=== PATIENT | female | born 1980 | race African-American/Black ===

== ENCOUNTER 2016-12-31 23:20 | Emergency (ER) | payer BC ==
--- NOTE | ~2016-12-31 | CR72 ---
[facility] A Service of [facility] RADIOLOGY TEXT RESULTS PATIENT: CAIN BEGUM LOCATION: [facility] : [birth year] UNIT #: [id number] AGE: [address]: Niels Rodriguez MD SEX: F ORDER DR: [id number] [facility] [address] [place], [place] [address] [id number] E MR#: [id number] Acc #: [id number] NAME: CAIN BEGUM : 1980 SEX: F STUDY DATE/TIME: 12/31/2016 22:07 UNIT: [facility] ROOM: STUDY DESCRIPTION: CR Chest Single View Portable Attending Physician: Niels Rodriguez M.D. Ordering Physician: Niels Rodriguez M.D. Primary Care Physician: No Primary Care Physician MEDICAL IMAGING REPORT This report is preliminary unless electronic signature is present EXAM AP portable chest. DATE 12/31/2016 at 2207 HISTORY 36-year-old female with complaints of chest pain, tightness and burning sensation for 2 days. COMPARISON AP portable chest, 05/14/2016. FINDINGS A single AP portable view of the chest shows both lungs to be clear. The heart is normal in size. The mediastinal contour is normal. No significant bone abnormalities are seen. IMPRESSION Normal portable chest. Dictated by... Margoth Rea M.D. THIS IS AN ELECTRONICALLY VERIFIED REPORT Margoth Rea M.D. at 01/05/2017 8:[address] [facility]/melyssa TD: 01/01/2017 09:40 JOB #: [id number] [facility] A Service [facility] RADIOLOGY TEXT RESULTS PATIENT: CAIN BEGUM LOCATION: [facility] : 82 UNIT #: [id number] AGE: [address]: Niels Rodriguez MD SEX: F ORDER DR: MEDICAL IMAGING REPORT Page 1 of 1 COPY
--- NOTE | ~2016-12-31 | EKG ---
PATIENT: CAIN BEGUM UNIT #: [id number] Ventricular Rate: 100 BPM Atrial Rate: 100 BPM P-R Interval: 132 ms QRS Duration: 70 ms Q-T Interval: 356 ms QTC Calculation(Bezet): 459 ms P Bruno: 58 degrees Calculated R Bruno: 9 degrees Calculated T Bruno: -13 degrees Diagnosis Line: Normal sinus rhythm Diagnosis Line: T wave abnormality, consider anterior ischemia Diagnosis Line: Abnormal ECG Diagnosis Line: When compared with ECG of 14-MAY-2016 18:50, Diagnosis Line: No significant change was found Diagnosis Line: Confirmed by VINCENT ZUÑIGA MD ([id number]) on 01/04/2017 Diagnosis Line: 7:16:43 AM INTERPRETING MD: YOGESH CALLAHAN
--- NOTE | ~2016-12-31 | US85 ---
[facility] A Service of [facility] & [facility] RADIOLOGY TEXT RESULTS PATIENT: CAIN BEGUM LOCATION: [facility] : 82 UNIT #: [id number] AGE: [address]: Niels Rodriguez MD SEX: F ORDER DR: [id number] [facility] [address] [place], [place] [address] [id number] E MR#: [id number] Acc #: [id number] NAME: CAIN BEGUM : 1980 SEX: F STUDY DATE/TIME: 12/31/2016 21:23 UNIT: [facility] ROOM: STUDY DESCRIPTION: [employer] Attending Physician: Niels Rodriguez M.D. Ordering Physician: Niels Rodriguez M.D. Primary Care Physician: Primary Care Physician No MEDICAL IMAGING REPORT This report is preliminary unless electronic signature is present EXAM Right lower extremity venous Doppler study HISTORY History of pulmonary embolism in November 2015. Chest tightness and pain beginning today. History of right lower extremity pain for 2 days. FINDINGS Color-flow, garcia-scale compression and Doppler spectral waveform analysis of the right lower extremity was performed. Examination shows no intraluminal filling defects. Veins are compressible throughout. There is normal phasicity of flow. CONCLUSION Negative right lower extremity venous Doppler. Dictated by... Jose Maloney M.D. THIS IS AN ELECTRONICALLY VERIFIED REPORT Jose Maloney M.D. at 01/04/2017 5:10 PM Lety TD: 01/01/2017 09:25 JOB #: [id number] MEDICAL IMAGING REPORT Page 1 of 1 COPY
[2016-12-31 22:03] LABS: BASOPHIL# 0.1 X10e3 (0-0.3); BASOPHIL% 1.6 % (0-2.5); EOSINOPHIL# 0.2 X10e3 (0-0.7); EOSINOPHIL% 2.6 % (0.0-7.0); HEMATOCRIT 38.8 % (35.0-45.0); HEMOGLOBIN 12.4 gm/dL (12.0-16.0); LYMPHOCYTE# 3.2 X10e3 (1.0-3.5); LYMPHOCYTE% 49.9 % (17.0-45.0); MEAN CELL VOLUME 85.9 FL (83-96); MEAN CORPUSCULAR HEMOGLOBIN 27.5 PG (28-34); MEAN PLATELET VOLUME 6.9 FL (6.5-11.5); MONOCYTE# 0.3 X10e3 (0-1.0); MONOCYTE% 4.1 % (3.0-12.0); NEUTROPHIL# 2.7 X10e3 (1.5-7.1); NEUTROPHIL% 41.8 % (40-75); PLATELET COUNT 453 X10e3 (140-420); RED BLOOD COUNT 4.52 X10e (3.90-5.30); RED CELL DISTRIBUTION WIDTH 13.5 % (11.0-15.5); WHITE BLOOD COUNT 6.5 X10e3 (4.0-10.5)
[2016-12-31 22:04] LABS: DIFF IND NO
[2016-12-31 22:17] LABS: POC - CKMB <1.0 ng/mL (0.0-7.9); POC - TROPONIN <0.05 ng/mL (<=0.05)
[2016-12-31 22:26] LABS: INR 0.9; PARTIAL THROMBOPLASTIN TIME 26.4 SECONDS (23.5-31.3)
[2016-12-31 22:29] LABS: ALBUMIN SERUM 4.2 g/dL (3.5-5.0); ALKALINE PHOSPHATASE 85 U/L (32-92); ALT (SGPT) 32 U/L (10-40); AST (SGOT) 23 U/L (10-42); BILIRUBIN, DIRECT 0.1 mg/dL (0.0-0.2); BILIRUBIN,INDIRECT 0.3 mg/dL (0.0-0.9); BILIRUBIN,TOTAL 0.4 mg/dL (0.2-2.0); BLOOD UREA NITROGEN 15 mg/dL (9-23); CALCIUM SERUM 9.2 mg/dL (8.4-10.2); CARBON DIOXIDE 23 mmol/L (22-31); CHLORIDE 103 mmol/L (100-111); GLOM FILT RATE Estimated ABOVE60 mL/min (>60); GLUCOSE FASTING 100 mg/dL (70-110); POTASSIUM 3.5 mmol/L (3.5-5.1); PROTEIN TOTAL SERUM 7.5 g/dL (6.0-8.3); SODIUM 136 mmol/L (135-145)
[~2016-12-31 23:20] MED LIST: FAMOTIDINE PO; LORTAB 5/500 TA1 TA1 PO; MEDROL4 MG/DOSE-; NO MEDICATIONS; PHENERGAN PO; PHENERGAN SUPP25 MG PR; PHENERGAN12.5 M1 PR; PHENERGAN12.5 MG PO; PHENERGAN25 MG PO; PREDNISONE PO; PREDNISONE5 MG PO; ULTRAM PO; VICODIN 5-3001 EACH PO; ZANAFLEX2 MG PO; ZOFRAN ODT4 MG PO
== END 2016-12-31 23:45 | disposition home or self-care (01) ==
LOC: CED 23:20
PROVIDERS: Emergency Medicine
DX: R07.81 Pleurodynia (principal); Z90.49 Acquired absence of other specified parts of digestive tract; Z88.0 Allergy status to penicillin; Z88.8 Allergy status to other drugs, medicaments and biological substances
CPT/HCPCS: 36415; 71010; 80048; 80076; 82553; 84484; 84703; 85025; 85379; 85610; 85730; 93005; 93971; 96374; 96375; 99284; J2270; J2405

== ENCOUNTER 2017-02-24 19:05 | Emergency (ER) | payer BC ==
[2017-02-24 19:44] LABS: URINE SOURCE CLEAN CATCH
[2017-02-24 19:56] LABS: URINE APPEARANCE CLEAR; URINE BILIRUBIN NEG (NEG); URINE BLOOD NEG (NEG); URINE COLOR YELLOW; URINE GLUCOSE NEG (NEG); URINE KETONE NEG (NEG); URINE LEUKOCYTE ESTERASE NEG (NEG); URINE NITRATE NEG (NEG); URINE PH 7.5 (5-8); URINE PROTEIN NEG (NEG); URINE SPECIFIC GRAVITY 1.023 (1.003-1.035)
[2017-02-24 20:03] LABS: CULTURE INDICATED? NO
[2017-02-24 20:39] LABS: BASOPHIL% 0.4 % (0-2.5); EOSINOPHIL# 0.1 X10e3 (0-0.7); EOSINOPHIL% 1.7 % (0.0-7.0); HEMATOCRIT 40.6 % (35.0-45.0); LYMPHOCYTE# 2.9 X10e3 (1.0-3.5); LYMPHOCYTE% 48.7 % (17.0-45.0); MEAN CELL VOLUME 87.9 FL (83-96); MEAN CORPUSCULAR HGB CONC 31.9 g/dL (30-36); MEAN PLATELET VOLUME 7.4 FL (6.5-11.5); MONOCYTE# 0.3 X10e3 (0-1.0); MONOCYTE% 5.6 % (3.0-12.0); NEUTROPHIL# 2.6 X10e3 (1.5-7.1); NEUTROPHIL% 43.6 % (40-75); PLATELET COUNT 367 X10e3 (140-420); RED BLOOD COUNT 4.62 X10e (3.90-5.30); RED CELL DISTRIBUTION WIDTH 13.6 % (11.0-15.5); WHITE BLOOD COUNT 5.9 X10e3 (4.0-10.5)
[2017-02-24 20:45] LABS: DIFF IND NO
[2017-02-24 20:55] LABS: BILIRUBIN, DIRECT 0.1 mg/dL (0.0-0.2); BILIRUBIN,INDIRECT 0.3 mg/dL (0.0-0.9); BILIRUBIN,TOTAL 0.4 mg/dL (0.2-2.0); CALCIUM SERUM 8.7 mg/dL (8.4-10.2); GLOM FILT RATE Estimated 84.6 mL/min (>60); POTASSIUM 3.8 mmol/L (3.5-5.1)
== END 2017-02-25 00:15 | disposition home or self-care (01) ==
LOC: CED 19:05
DX: R10.11 Right upper quadrant pain (principal); R11.2 Nausea with vomiting, unspecified; L29.9 Pruritus, unspecified; Z86.19 Personal history of other infectious and parasitic diseases; Z90.49 Acquired absence of other specified parts of digestive tract; Z98.890 Other specified postprocedural states
CPT/HCPCS: 80048; 80076; 81003; 83690; 84703; 85025; 96372; 99284; J0780; J1200; J2930

== ENCOUNTER 2017-06-09 17:28 | Emergency (ER) | payer BC ==
[~2017-06-09] VITALS: Ht 165.1 cm; Wt 108.9 kg
--- NOTE | ~2017-06-09 | CT4 ---
[facility] A Service of [facility] & [facility] RADIOLOGY TEXT RESULTS PATIENT: CAIN BEGUM LOCATION: [facility] : 82 UNIT #: [id number] AGE: [address]: Mukul Kellogg MD SEX: F ORDER DR: [id number] [facility] [address] [place], [place] [address] [id number] E MR#: [id number] Acc #: [id number] NAME: CAIN BEGUM : 1980 SEX: F STUDY DATE/TIME: 06/09/2017 20:07 UNIT: [facility] ROOM: STUDY DESCRIPTION: CT Abd and Pelv Wo Cont Attending Physician: Mukul Kellogg M.D. Ordering Physician: Mukul Kellogg M.D. Primary Care Physician: Primary Care Physician No MEDICAL IMAGING REPORT This report is preliminary unless electronic signature is present EXAM CT of the abdomen and pelvis without contrast, 06/09/[address] abdomen and pelvis without contrast dated 11/04/2016. HISTORY Patient passed a renal stone on 06/07/2017. Lower abdominal and pelvic pain, nausea, vomiting, diarrhea. Unable to urinate today. FINDINGS CT of the abdomen and pelvis were obtained without IV or oral contrast in the axial plane followed by sagittal and coronal reformats. This CT exam was performed with one or more of the following radiation dose reduction techniques: automatic exposure control, adjustment of mA and/or kV according to patient size, and iterative reconstruction. LOWER CHEST: Minimal dependent atelectatic changes are noted, particularly in the right lung base. No pleural effusion, pneumothorax, or dense consolidation. Heart is of normal size. ABDOMEN: Status post cholecystectomy. No renal stone, hydronephrosis or obvious contour deforming mass. No hydroureters or hydroureteral stones are seen. It is difficult to follow the ureters throughout their course but in the expected course of bilateral ureters there are no calcifications noted. Lack of IV contrast limits evaluation of solid organs. Grossly the liver, spleen, adrenal glands and pancreas are unremarkable. No evidence of aortic aneurysm. Lack of oral contrast limits evaluation of bowel loops. No evidence of bowel obstruction, free fluid, free air or significant lymphadenopathy. Appendix is within normal limits in the right lower quadrant extending into the right lateral aspect [facility] A Service of [facility] RADIOLOGY TEXT RESULTS PATIENT: CAIN BEGUM LOCATION: [facility] : 82 UNIT #: [id number] AGE: [address]: Mukul Kellogg MD SEX: F ORDER DR: of the upper pelvic soft tissues. The patient likely has bilateral fallopian rings, with history they are noted along the lower abdomen, slightly higher than usual in location. PELVIS: The uterus does not demonstrate any obvious abnormality on the noncontrasted study. There is mild stool burden in the colon. Urinary bladder is predominantly decompressed and within normal limits. IMPRESSION 1. No renal stones, ureteral stones, hydronephrosis or hydroureters. 2. Status post cholecystectomy. 3. Appendix appears to be unremarkable. Dictated by... Roxy Coleman M.D. THIS IS AN ELECTRONICALLY VERIFIED REPORT Roxy Coleman M.D. at 06/10/2017 6:26 PM CPR/janet TD: 06/10/2017 00:52 JOB #: [id number] MEDICAL IMAGING REPORT Page 1 of 1 COPY
[2017-06-09 18:14] LABS: BASOPHIL% 0.5 % (0-2.5); EOSINOPHIL# 0.1 X10e3 (0-0.7); EOSINOPHIL% 2.1 % (0.0-7.0); HEMATOCRIT 39.3 % (35.0-45.0); HEMOGLOBIN 13.2 gm/dL (12.0-16.0); LYMPHOCYTE# 2.6 X10e3 (1.0-3.5); LYMPHOCYTE% 45.2 % (17.0-45.0); MEAN CELL VOLUME 85.3 FL (83-96); MEAN CORPUSCULAR HEMOGLOBIN 28.6 PG (28-34); MEAN CORPUSCULAR HGB CONC 33.6 g/dL (30-36); MEAN PLATELET VOLUME 6.7 FL (6.5-11.5); MONOCYTE# 0.3 X10e3 (0-1.0); MONOCYTE% 5.4 % (3.0-12.0); NEUTROPHIL# 2.6 X10e3 (1.5-7.1); NEUTROPHIL% 46.8 % (40-75); PLATELET COUNT 344 X10e3 (140-420); RED CELL DISTRIBUTION WIDTH 13.5 % (11.0-15.5); WHITE BLOOD COUNT 5.6 X10e3 (4.0-10.5)
[2017-06-09 18:15] LABS: DIFF IND NO
[2017-06-09 19:07] LABS: ALBUMIN SERUM 3.8 g/dL (3.5-5.0); BILIRUBIN, DIRECT 0.1 mg/dL (0.0-0.2); BILIRUBIN,TOTAL 0.1 mg/dL (0.2-2.0); BUN/CREATININE RATIO 16.25; CREATININE SERUM 0.8 mg/dL (0.6-1.4); GLOM FILT RATE Estimated 110.8 mL/min (>60); POTASSIUM 4.3 mmol/L (3.5-5.1); PROTEIN TOTAL SERUM 6.9 g/dL (6.0-8.3)
[2017-06-09 19:36] LABS: URINE SOURCE CLEAN CATCH
[2017-06-09 19:59] LABS: URINE APPEARANCE CLEAR; URINE BILIRUBIN NEG (NEG); URINE BLOOD NEG (NEG); URINE COLOR YELLOW; URINE GLUCOSE NEG (NEG); URINE KETONE NEG (NEG); URINE LEUKOCYTE ESTERASE NEG (NEG); URINE NITRATE NEG (NEG); URINE PH 6.5 (5-8); URINE PROTEIN NEG (NEG); URINE SPECIFIC GRAVITY 1.015 (1.003-1.035)
[2017-06-09 20:07] LABS: CULTURE INDICATED? NO
== END 2017-06-09 20:47 | disposition home or self-care (01) ==
LOC: CED 17:28
DX: R10.31 Right lower quadrant pain (principal); G89.29 Other chronic pain; R11.2 Nausea with vomiting, unspecified; R19.7 Diarrhea, unspecified; R31.9 Hematuria, unspecified; Z90.49 Acquired absence of other specified parts of digestive tract; Z88.0 Allergy status to penicillin; Z88.8 Allergy status to other drugs, medicaments and biological substances
CPT/HCPCS: 36415; 74176; 80048; 80076; 81003; 82150; 83690; 84703; 85025; 96374; 96375; 99284; J2550; J3010